=== PATIENT | female | born 1950 | race Caucasian/White ===

== ENCOUNTER → 2017-01-15 | Outpatient (CLI) | payer OTHER ==
[~2017-01-15] VITALS: Ht 149.9 cm; Wt 58.1 kg
[~2017-01-15] MED LIST: FISH OIL 1,0001 EAC7 PO; LO-DOSE ASPIRIN81 M2 PO; PREMARIN0.3 MG PO; ZANTAC150 MG PO; ZESTORETIC 10-1 EAC1 PO; ZOCOR20 MG PO
== END | disposition home or self-care (01) ==
LOC: AMB 12-18 09:30
DX: K31.9 Disease of stomach and duodenum, unspecified (principal); R10.32 Left lower quadrant pain; K21.9 Gastro-esophageal reflux disease without esophagitis; I10 Essential (primary) hypertension; E78.5 Hyperlipidemia, unspecified; Z79.82 Long term (current) use of aspirin; Z83.3 Family history of diabetes mellitus; Z82.49 Family history of ischemic heart disease and other diseases of the circulatory system
CPT/HCPCS: 93005; C1726; J0330; J1100; J2250; J2405; J3010